=== PATIENT | female | born 1975 | race Asian ===

== ENCOUNTER 2017-09-06 00:54 | Emergency (ER) | payer BC ==
[2017-09-05 21:57] VITALS: TEMP 98.4
[2017-09-05 22:18] LABS: % IMMATURE GRANULYOCYTES 0.5 % (0.0-1.1); ABSOLUTE IMMATURE GRANULOCYTES 0.02 10^3/uL (0.00-0.10); ABSOLUTE NRBC COUNT 0.03 10^3/uL (0-0.01); ADD DIFF? NO; ADD MORPH? NO; ADD SCAN? NO; ATYPICAL LYMPHOCYTE FLAG 0 (0-99); FRAGMENT RBC FLAG 0 (0-99); HEMATOCRIT 34.6 % (38.0-47.0); HEMOGLOBIN 12.9 g/dL (12.6-16.3); LEFT SHIFT FLG 0 (0-99); LIPEMIA HEMOLYSIS FLAG 90 (0-99); MEAN CELL HEMOGLOBIN 38.9 pg (27.9-34.1); MEAN CELL HEMOGLOBIN CONCENTR. 37.3 g/dL (32.4-36.7); MEAN CELL VOLUME 104.2 fL (81.5-99.8); MEAN PLATELET VOLUME 9.8 fL (8.7-11.7); NRBC-AUTO% 0.7 % (0.0-0.2); PLATELET CLUMPS FLAG 0 (0-99); PLATELET COUNT 211 10^3/uL (150-400); RED BLOOD CELL COUNT 3.32 10^6/uL (4.18-5.33); RED CELL DISTRIBUTION WIDTH 13.2 % (11.5-15.2)
[2017-09-05 22:34] LABS: ALANINE AMINOTRANSFERASE 338 IU/L (9-52); ALBUMIN 3.6 g/dL (3.5-5.0); ALKALINE PHOSPHATASE 372 IU/L (38-126); ANION GAP 10 mEq/L (8-16); BILIRUBIN,TOTAL 2.4 mg/dL (0.1-1.4); BILIRUBIN-CONJUGATED 1.7 mg/dL (0.0-0.5); BILIRUBIN-UNCONJUGATED 0.7 mg/dL (0.0-1.1); CARBON DIOXIDE 39 mEq/l (22-31); CHLORIDE 84 mEq/L (97-110); CREATININE 0.7 mg/dL (0.6-1.0); GLOMERULAR FILTRATION RATE > 60; GLUCOSE 106 mg/dL (70-100); SODIUM 133 mEq/L (134-144); TOTAL PROTEIN 6.2 g/dL (6.3-8.2)
[2017-09-05 22:42] LABS: POTASSIUM 2.2 mEq/L (3.5-5.2)
--- NOTE | 2017-09-05 22:42 | EDPHY ---
H & P Stated Complaint: LFT elevated; referred by PCP; fever, N/V; ETOH abuse Time Seen by Provider: 09/05/17 22:12 HPI/ROS: HPI The patient presents with abnormal lab test performed yesterday by her primary care doctor, told to come into the emergency department. She had multiple abnormalities on her chemistry panel and liver testing. She had gone to her primary care doctor after having 3-4 weeks of symptoms including fevers, chills , nausea, vomiting, abdominal pain. Her symptoms began slowly about a month ago and have gotten progressively worse. She describes waking with rigors in the morning. About 5 days ago she bought a thermometer and her temperature has been as high as about 100 F. She has nausea and vomiting daily, 3-10 times. She thinks her symptoms are worse in the morning and vomits upon awakening. She does deliberately induced vomiting as well as part of an eating disorder she has suffered from for many years. She says over the last day she has been able to eat some bland foods. She thinks her clothes have been fitting somewhat differently but is unsure of any weight loss. She does drink alcohol and is a chronic alcoholic drinking approximately 1 L a day of hard alcohol. She came off [employer] 2 months ago. 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 She does not have any recent travel though was camping over Labor Day weekend in the [facility] for a few days. She reports that intermittently her lymph nodes of her neck become swollen. She also reports 2 weeks of cough.. REVIEW OF SYSTEMS Constitutional: Fever and chills present Eyes: No discharge. ENT: No sore throat. Cardiovascular: No chest pain, no palpitations. Respiratory: Cough present, no shortness of breath. Gastrointestinal: See HPI Genitourinary: No hematuria. Musculoskeletal: No back pain. Skin: No rashes. Neurological: No headache. 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 FHx: Mother of non-Hodgkin's lymphoma, grandfather was alcoholic PHYSICAL General Appearance: Alert, no distress Eyes: Pupils equal and round no pallor or injection ENT, Mouth: Mucous membranes dry, tongue erythematous Respiratory: There are no retractions, lungs are clear to auscultation Cardiovascular: Regular rate and rhythm Gastrointestinal: Abdomen is soft, scaphoid, liver is enlarged, and non-tender , no masses, bowel sounds normal Neurological: A&O, moves all extremities Skin: Warm and dry, no rashes Musculoskeletal: Neck is supple non tender Extremities: symmetrical, full range of motion Psychiatric: Patient is oriented X 3, there is no agitation Source: Patient Exam Limitations: No limitations - Personal History LMP (Females 10-55): Unknown Current Tetanus/Diphtheria Vaccine: Yes Current Tetanus Diphtheria and Acellular Pertussis (TDAP): Yes Tetanus Vaccine Date: 2007 - Medical/Surgical History Other PMH: anxiety/depression, ortho surg - Social History Smoking Status: Never smoked Constitutional: Initial Vital Signs Temperature (C) 36.9 C 09/05/17 21:53 Heart Rate 94 09/05/17 21:53 Respiratory Rate 16 09/05/17 21:53 Blood Pressure 123/106 H 09/05/17 21:53 O2 Sat (%) 95 09/05/17 21:53 O2 Delivery Mode Room Air Allergies/Adverse Reactions: ciprofloxacin [From Cipro] Allergy (Verified 03/31/16 14:34) ciprofloxacin HCl [From Cipro] Allergy (Verified 03/31/16 14:34) Home Medications: Medication Instructions Recorded traZODONE 25 PO PRN 11/22/14 Medical Decision Making - Diagnostics Imaging Results: Imaging Impressions Abdomen Ultrasound 09/05/17 22:35 Impression: 1. No cholelithiasis or biliary ductal dilation. 2. Mild hepatomegaly and hepatic steatosis without focal lesions or ascites. Findings and recommendations discussed with Emergency Department physician, Makeda Diamond MD at 23:53 hour, 09/05/2017. Final report concurs with initial preliminary interpretation. Chest X-Ray 09/05/17 22:42 Impression: 1. No focal pneumonia. 2. No pleural effusion. Imaging: Discussed imaging studies w/ used car manager Radiologist Differential Diagnosis: This is a 42-year-old female with eating disorder which involves self induce vomiting, chronic alcohol abuse drinking a L of hard alcohol a day, who presents to the emergency department after having abnormal outpatient labs drawn yesterday, upon the urging of her primary care doctor. She reports about a month of low-grade fevers, weakness, nausea, vomiting, abdominal bloating. She is unsure about weight loss. Differential diagnosis includes alcoholic hepatitis, viral hepatitis, electrolyte disturbance, dehydration. In the emergency department, patient was given 1 L of normal saline for presumed volume depletion. Labs were checked and did reveal profound hypokalemia with potassium of 2.2. She had a metabolic alkalosis which is likely related to hypokalemia as well as her vomiting. AST and ALT were quite elevated with normal synthetic liver function. Right upper quadrant ultrasound was performed to rule out any biliary disease and this was negative. Given her potassium, I have ordered both IV and p.o. supplementation, however I think she will require additional potassium as an inpatient. I discussed the admission with Dr. Pantoja. With I have discussed admission with her, explained that we can treat her for any alcohol withdrawal symptoms at she has. At 1st, she became upset when she learned that she could not go outside to smoke freely while admitted to the hospital. I told her we can give her a nicotine patch and we will treat her with Ativan for alcohol withdrawal. I explained that she should be admitted to the hospital given her electrolyte imbalances. She pulled out her IV and was insistent upon leaving. We discussed risks of leaving which do include given her electrolyte imbalance. She called her and he said that she should do whatever she wants to. I explained that I am concerned about her going, however she says that she does not want to feel like a prisoner staying here. I again offered her medication for alcohol withdrawal here. She left the department and signed an AMA form. - Data Points Laboratory Results: Laboratory Results 09/05/17 22:10 09/05/17 22:10 09/05/17 09/05/17 09/05/17 23:15 23:00 22:10 WBC RBC Hgb Hct MCV MCH MCHC RDW Plt Count MPV Neut % (Auto) Lymph % (Auto) [place] % (Auto) Eos % (Auto) Baso % (Auto) Nucleat RBC Rel Count Absolute Neuts (auto) Absolute Lymphs (auto) Absolute Monos (auto) Absolute Eos (auto) Absolute Basos (auto) Absolute Nucleated RBC Immature Gran % Immature Gran # PT INR APTT Puncture Site VENOUS Patient Temperature 37.0 DEGREES DEGREES VBG pH 7.51 H (7.31-7.42) VBG HCO3 37 mEQ/L H mEQ/L (22-26) VBG Total CO2 39 mEq/L H mEq/L (23-27) VBG O2 Saturation 81 % H % (65-75) VBG Base Excess 12.6 mEq/L H mEq/L (-2.5-2.5) Mixed VBG pCO2 47 mmHg H mmHg (40-44) Mixed VBG pO2 49 mmHg H mmHg (35-40) Sodium Potassium Chloride Carbon Dioxide Anion Gap BUN Creatinine Estimated GFR Glucose Calcium Phosphorus Cancelled Magnesium Cancelled Total Bilirubin Conjugated Bilirubin Unconjugated Bilirubin AST ALT Alkaline Phosphatase Total Protein Albumin Lipase Urine Color YELLOW Urine Appearance CLEAR Urine pH 8.0 H (5.0-7.5) Ur Specific [place] 1.002 (1.002-1.030) Urine Protein NEGATIVE (NEGATIVE) Urine Ketones NEGATIVE (NEGATIVE) Urine Blood NEGATIVE (NEGATIVE) Urine Nitrate NEGATIVE (NEGATIVE) Urine Bilirubin NEGATIVE (NEGATIVE) Urine Urobilinogen 2.0 EU H EU (0.2-1.0) Ur Leukocyte Esterase NEGATIVE (NEGATIVE) Urine Glucose NEGATIVE (NEGATIVE) 09/05/17 09/05/17 09/05/17 22:10 22:10 22:10 WBC RBC Hgb Hct MCV MCH MCHC RDW Plt Count MPV Neut % (Auto) Lymph % (Auto) [place] % (Auto) Eos % (Auto) Baso % (Auto) Nucleat RBC Rel Count Absolute Neuts (auto) Absolute Lymphs (auto) Absolute Monos (auto) Absolute Eos (auto) Absolute Basos (auto) Absolute Nucleated RBC Immature Gran % Immature Gran # PT 12.5 SEC SEC (12.0-15.0) INR 0.94 (0.83-1.16) APTT 27.6 SEC SEC (23.0-38.0) Puncture Site Patient Temperature VBG pH VBG HCO3 VBG Total CO2 VBG O2 Saturation VBG Base Excess Mixed VBG pCO2 Mixed VBG pO2 Sodium 133 mEq/L L mEq/L (134-144) Potassium 2.2 mEq/L L* mEq/L (3.5-5.2) Chloride 84 mEq/L L mEq/L (97-110) Carbon Dioxide 39 mEq/l H mEq/l (22-31) Anion Gap 10 mEq/L mEq/L (8-16) BUN 3 mg/dL L mg/dL (7-23) Creatinine 0.7 mg/dL mg/dL (0.6-1.0) Estimated GFR > 60 Glucose 106 mg/dL H mg/dL (70-100) Calcium 9.0 mg/dL mg/dL (8.5-10.4) Phosphorus 3.7 mg/dL mg/dL (2.5-4.5) Magnesium 1.4 mg/dL L mg/dL (1.6-2.3) Total Bilirubin 2.4 mg/dL H mg/dL (0.1-1.4) Conjugated Bilirubin 1.7 mg/dL H mg/dL (0.0-0.5) Unconjugated Bilirubin 0.7 mg/dL mg/dL (0.0-1.1) AST 957 IU/L H IU/L (14-46) ALT 338 IU/L H IU/L (9-52) Alkaline Phosphatase 372 IU/L H IU/L (38-126) Total Protein 6.2 g/dL L g/dL (6.3-8.2) Albumin 3.6 g/dL g/dL (3.5-5.0) Lipase 202 IU/L IU/L (23-300) Urine Color Urine Appearance Urine pH Ur Specific [place] Urine Protein Urine Ketones Urine Blood Urine Nitrate Urine Bilirubin Urine Urobilinogen Ur Leukocyte Esterase Urine Glucose 09/05/17 22:10 WBC 4.17 10^3/uL 10^3/uL (3.80-9.50) RBC 3.32 10^6/uL L 10^6/uL (4.18-5.33) Hgb 12.9 g/dL g/dL (12.6-16.3) Hct 34.6 % L % (38.0-47.0) MCV 104.2 fL H fL (81.5-99.8) MCH 38.9 pg H pg (27.9-34.1) MCHC 37.3 g/dL H g/dL (32.4-36.7) RDW 13.2 % % (11.5-15.2) Plt Count 211 10^3/uL 10^3/uL (150-400) MPV 9.8 fL fL (8.7-11.7) Neut % (Auto) 43.6 % % (39.3-74.2) Lymph % (Auto) 38.4 % % (15.0-45.0) [place] % (Auto) 14.4 % H % (4.5-13.0) Eos % (Auto) 1.9 % % (0.6-7.6) Baso % (Auto) 1.2 % % (0.3-1.7) Nucleat RBC Rel Count 0.7 % H % (0.0-0.2) Absolute Neuts (auto) 1.82 10^3/uL 10^3/uL (1.70-6.50) Absolute Lymphs (auto) 1.60 10^3/uL 10^3/uL (1.00-3.00) Absolute Monos (auto) 0.60 10^3/uL 10^3/uL (0.30-0.80) Absolute Eos (auto) 0.08 10^3/uL 10^3/uL (0.03-0.40) Absolute Basos (auto) 0.05 10^3/uL 10^3/uL (0.02-0.10) Absolute Nucleated RBC 0.03 10^3/uL H 10^3/uL (0-0.01) Immature Gran % 0.5 % % (0.0-1.1) Immature Gran # 0.02 10^3/uL 10^3/uL (0.00-0.10) PT INR APTT Puncture Site Patient Temperature VBG pH VBG HCO3 VBG Total CO2 VBG O2 Saturation VBG Base Excess Mixed VBG pCO2 Mixed VBG pO2 Sodium Potassium Chloride Carbon Dioxide Anion Gap BUN Creatinine Estimated GFR Glucose Calcium Phosphorus Magnesium Total Bilirubin Conjugated Bilirubin Unconjugated Bilirubin AST ALT Alkaline Phosphatase Total Protein Albumin Lipase Urine Color Urine Appearance Urine pH Ur Specific [place] Urine Protein Urine Ketones Urine Blood Urine Nitrate Urine Bilirubin Urine Urobilinogen Ur Leukocyte Esterase Urine Glucose Medications Given: Potassium Chloride (Potassium Cl 10 Meq (Premix)) 100 mls @ 100 mls/hr IV Q1H [facility] Stop: 09/06/17 02:44 Last Admin: 09/05/17 23:01 Dose: 100 mls Discontinued Medications Potassium Chloride (Potassium Chloride Oral Liquid) 40 meq PO EDNOW ONE Stop: 09/05/17 22:44 Last Admin: 09/05/17 23:00 Dose: 40 meq Departure - Departure Disposition: Against Medical Advice Clinical Impression: Metabolic alkalosis, Hypokalemia Alcoholic hepatitis Qualifiers: Ascites presence: without ascites Qualified Code(s): K70.10 - Alcoholic hepatitis without ascites Condition: Fair Instructions: Abuse of Alcohol (ED), Alcoholic Hepatitis (ED) Referrals: Nash Alberts MD [Primary Care Provider] - As per Instructions
[2017-09-05 22:47] LABS: INR 0.94 (0.83-1.16); PROTIME(PATIENT) 12.5 SEC (12.0-15.0)
[2017-09-05 22:48] LABS: APTT 27.6 SEC (23.0-38.0)
[2017-09-05 22:52] LABS: MAGNESIUM 1.4 mg/dL (1.6-2.3)
[2017-09-05 23:08] LABS: ASPARTATE AMINOTRANSFERASE 957 IU/L (14-46)
[2017-09-05 23:21] LABS: PCO2 VENOUS 47 mmHg (40-44); PH VENOUS BLOOD 7.51 (7.31-7.42); PO2 VENOUS 49 mmHg (35-40); TCO2 VENOUS 39 mEq/L (23-27); VEN MEASURED OXYGEN SATURATION 81 % (65-75)
[2017-09-05 23:27] LABS: COLOR YELLOW; LEUKOCYTE ESTERASE,URINE NEGATIVE (NEGATIVE); NITRITE,URINE NEGATIVE (NEGATIVE)
[~2017-09-06 00:54] MED LIST: ACETAMINOPHEN 325 MG TAB PO PRN; LORazepam 1 MG TAB PO PRN; LORazepam 2 MG/ML INJ IVP ONE; NS 1,000 ML IV ONE; ONDANSETRON 4 MG/2 ML VIAL IVP PRN; ONDANSETRON DISINTEGRATING 4 MG TAB PO PRN; POTASSIUM CL 20 MEQ/15 ML UDCUP ONE; POTASSIUM CL 20 MEQ/15 ML UDCUP PO ONE; POTASSIUM Cl (KCl) 100 ML IV SCH; PROMETHAZINE HCL 25 MG/ML INJ IVP PRN
[2017-09-06 00:56] VITALS: BP 147/109; PULSE 78; RESP 18; O2SAT 93
== END 2017-09-06 00:56 | disposition left against medical advice (07) ==
DX: E87.3 Alkalosis (principal); E87.6 Hypokalemia; K70.10 Alcoholic hepatitis without ascites; F17.210 Nicotine dependence, cigarettes, uncomplicated
CPT/HCPCS: 96374